=== PATIENT | female | born 1975 | race Caucasian/White ===

== ENCOUNTER 2017-05-29 17:13 | Emergency (ER) | payer OTHER, MEDICAID ==
[2017-05-29] MEDS: ACETAMINOPHEN 325 MG TAB PO (20:04)
[2017-05-29] MEDS: ONDANSETRON (ODT) 4 MG TAB ODT (20:05)
[2017-05-29] MEDS: NAPROXEN 250 MG TAB PO (22:43)
== END 2017-05-29 22:57 | disposition home or self-care (01) ==
LOC: FTE 17:13
DX: N20.0 Calculus of kidney (principal)
CPT/HCPCS: 76775; 87086; 99284-25

== ENCOUNTER 2017-10-12 12:48 | Inpatient (IN) | payer OTHER ==
[2017-10-12] MEDS: LACTATED RINGER'S 1,000 ML IV ×3 (13:18→22:40)
[2017-10-12] MEDS ORDERED: OXYTOCIN 30 UNITS/LR 500 ML IV ×3 (13:30→22:00)
[2017-10-12] MEDS ORDERED: MISOPROSTOL 200 MCG TAB PR ×2 (13:30→22:00)
[2017-10-12] MEDS ORDERED: METHYLERGONOVINE 0.2 MG INJ IM ×2 (13:30→22:00)
[2017-10-12] MEDS ORDERED: CARBOPROST 250 MCG INJ IM ×2 (13:30→22:00)
[2017-10-12 14:04] LABS: ADD MAN DIFF? NO
[2017-10-12 14:06] LABS: BASOPHILS % 0.3 % (0.0-2.0); EOSINOPHILS % 0.4 % (0.0-7.0); HEMATOCRIT 33.2 % (37.0-47.0); LYMPHOCYTES # 2.8 10^3/ul (0.8-2.9); LYMPHOCYTES % 26.7 % (15.0-51.0); MEAN CORPUSCULAR HEMOGLOBIN 29.8 pg (29.0-33.0); MEAN CORPUSCULAR HGB CONC 33.1 g/dl (32.0-37.0); MEAN PLATELET VOLUME 10.8 fl (7.4-10.4); MONOCYTE # 0.7 10^3/ul (0.3-0.9); MONOCYTES % 6.6 % (0.0-11.0); NEUTROPHIL # 6.8 10^3/ul (1.6-7.5); NEUTROPHILS % 64.6 % (39.0-77.0); PLATELET COUNT 244 10^3/UL (140-415); RED BLOOD COUNT 3.69 10^6/ul (4.20-5.40); RED CELL DISTRIBUTION WIDTH 13.7 % (11.5-14.5)
[2017-10-12 14:06] LABS: WHITE BLOOD COUNT 10.6 10^3/ul (4.8-10.8)
[2017-10-12 14:25] LABS: INR 0.93; PROTIME 12.6 Sec (11.9-14.9)
[2017-10-12 14:26] LABS: PARTIAL THROMBOPLASTIN TIME 28.2 Sec (25.0-35.0)
[2017-10-12 14:53] LABS: HEPATITIS B SURFACE ANTIGEN NEGATIVE (NEGATIVE)
[2017-10-12 15:19] LABS: RAPID PLASMA REAGIN NONREACTIVE (NR)
[2017-10-12] MEDS ORDERED: morphine SULFATE/PF (10 MG/10 ML) INJ (17:30)
[2017-10-12] MEDS ORDERED: BUPIVACAINE 0.75%/DEXT (SPINAL) 2 ML INJ (17:31)
[2017-10-12] MEDS ORDERED: METOCLOPRAMIDE 10 MG INJ (17:31)
[2017-10-12] MEDS ORDERED: ONDANSETRON 4 MG INJ (17:31)
[2017-10-12] MEDS ORDERED: KETOROLAC 30 MG INJ (17:31)
[2017-10-12] MEDS ORDERED: morphine 2 MG INJ IV ×3 (19:30)
[2017-10-12] MEDS ORDERED: DIPHENHYDRAMINE 50 MG INJ IV ×2 (19:30)
[2017-10-12] MEDS ORDERED: ONDANSETRON 4 MG INJ IV (19:30)
[2017-10-12] MEDS ORDERED: NALOXONE (0.4 MG/ML) INJ IV (19:30)
[2017-10-12] MEDS ORDERED: MEPERIDINE 25 MG INJ IV (19:30)
[2017-10-12] MEDS ORDERED: morphine (1 MG/ML) 10ML SYRINGE IV ×3 (19:30)
[2017-10-12] MEDS: CEFAZOLIN 2 GM/50 ML (PMX) 50 ML IV ×2 (19:33→22:39)
[2017-10-12] MEDS: OXYTOCIN 30 UNITS/LR 500 ML IV (19:52)
[2017-10-12] MEDS: ONDANSETRON 4 MG INJ IV (20:07)
[2017-10-12] MEDS: KETOROLAC 30 MG INJ IV (20:07)
[2017-10-12] MEDS: SENNA/DOCUSATE NA (8.6MG/50MG) TAB PO (22:00)
[2017-10-12] MEDS ORDERED: NA PHOSPHATE/BIPHOS 133 ML ENEMA PR (22:00)
[2017-10-12] MEDS: LANOLIN 7 GM TUBE TOP (22:39)
[2017-10-12] MEDS: CLINDAMYCIN 300 MG CAP PO (22:40)
[2017-10-13] MEDS: CLINDAMYCIN 300 MG CAP PO ×5 (05:29→23:38)
[2017-10-13] MEDS: LACTATED RINGER'S 1,000 ML IV ×2 (05:30→13:58)
[2017-10-13] MEDS: CEFAZOLIN 2 GM/50 ML (PMX) 50 ML IV ×2 (05:47→13:48)
[2017-10-13 08:03] LABS: ADD MAN DIFF? NO
[2017-10-13 08:08] LABS: WHITE BLOOD COUNT 12.5 10^3/ul (4.8-10.8)
[2017-10-13 08:08] LABS: BASOPHILS % 0.2 % (0.0-2.0); EOSINOPHILS % 0.1 % (0.0-7.0); HEMATOCRIT 28.2 % (37.0-47.0); HEMOGLOBIN 9.3 g/dl (12.0-16.0); LYMPHOCYTES % 16.1 % (15.0-51.0); MEAN CORPUSCULAR HEMOGLOBIN 30.2 pg (29.0-33.0); MEAN CORPUSCULAR VOLUME 91.6 fl (82.0-101.0); MEAN PLATELET VOLUME 10.8 fl (7.4-10.4); MONOCYTES % 7.8 % (0.0-11.0); NEUTROPHIL # 9.4 10^3/ul (1.6-7.5); NEUTROPHILS % 74.7 % (39.0-77.0); PLATELET COUNT 205 10^3/UL (140-415); RED BLOOD COUNT 3.08 10^6/ul (4.20-5.40); RED CELL DISTRIBUTION WIDTH 13.7 % (11.5-14.5)
[2017-10-13] MEDS: SENNA/DOCUSATE NA (8.6MG/50MG) TAB PO ×2 (09:05→21:09)
[2017-10-13] MEDS: BISACODYL 10 MG SUPP PR (09:48)
[2017-10-13] MEDS: KETOROLAC 30 MG INJ IV ×2 (12:17→18:18)
[2017-10-13] MEDS ORDERED: HYDROCODONE/APAP (5/325) TAB PO (19:30)
[2017-10-13] MEDS ORDERED: OXYCODONE/ACETAMINOPHEN (5/325) TAB PO (19:30)
[2017-10-13] MEDS: IBUPROFEN 800 MG TAB PO (21:53)
[2017-10-14] MEDS: CLINDAMYCIN 300 MG CAP PO ×3 (05:29→18:17)
[2017-10-14] MEDS: IBUPROFEN 800 MG TAB PO ×3 (05:29→21:37)
[2017-10-14] MEDS: SENNA/DOCUSATE NA (8.6MG/50MG) TAB PO ×4 (09:22→21:39)
[2017-10-15] MEDS: CLINDAMYCIN 300 MG CAP PO ×3 (00:06→11:56)
[2017-10-15] MEDS: IBUPROFEN 800 MG TAB PO ×2 (05:40→14:17)
[2017-10-15] MEDS: DIPHTH/TET/ACEL PERTUSS (ADULT) 0.5 ML VIAL IM* (09:01)
[2017-10-15] MEDS: SENNA/DOCUSATE NA (8.6MG/50MG) TAB PO (09:51)
== END 2017-10-15 17:11 | disposition home or self-care (01) | DRG 766 ==
LOC: L-D 12:48 → PP1 21:18
PROVIDERS: Obstetrics & Gynecology
PROC: 10D00Z1 Extraction of Products of Conception, Low, Open Approach (ICD-10-PCS; principal; 2017-10-12 15:30)
PROC: 0UL70ZZ Occlusion of Bilateral Fallopian Tubes, Open Approach (ICD-10-PCS; 2017-10-12 15:30)
PROC: 3E033VJ Introduction of Other Hormone into Peripheral Vein, Percutaneous Approach (ICD-10-PCS; 2017-10-12 15:30)
DX: O34.211 Maternal care for low transverse scar from previous cesarean delivery (principal); Z3A.38 38 weeks gestation of pregnancy; Z37.0 Single live birth; Z30.2 Encounter for sterilization
CPT/HCPCS: 82962; 85025; 85610; 85730; 86592; 86850; 86900; 86901; 87340; 88302; 90715; 99464